=== PATIENT | female | born 1970 | race American Indian/Alaskan Native ===

== ENCOUNTER 2019-07-12 13:50 | Emergency (ER) | payer MEDICAID, OTHER ==
[2019-07-12] MEDS ORDERED: ASPIRIN 81 MG TAB CHEW PO ONE (15:51)
[2019-07-12] MEDS ORDERED: NITROGLYCERIN 0.4 MG TAB SUBL SL ONE ×2 (15:53→16:33)
[2019-07-12] MEDS ORDERED: MORPHINE 4 MG/1 ML INJ IV ONE (15:53)
[2019-07-12] MEDS ORDERED: ONDANSETRON 4 MG/2 ML INJ IV ONE (15:54)
[2019-07-12 16:10] LABS: Hemoglobin 13.4 gm/dl (10.1-14.3); Red Blood Count 4.34 M/mm3 (3.65-5.03)
[2019-07-12 16:11] LABS: Basophils % (Auto) 0.2 % (0.0-1.8); Eosinophils # (Auto) 0.1 K/mm3 (0.0-0.4); Eosinophils % (Auto) 1.5 % (0.0-4.3); Hematocrit 40.1 % (30.3-42.9); Lymphocytes # (Auto) 1.3 K/mm3 (1.2-5.4); Lymphocytes % (Auto) 28.2 % (13.4-35.0); Mean Corpuscular HGB Conc 33 % (30-34); Mean Corpuscular Volume 93 fl (79-97); Monocytes # (Auto) 0.4 K/mm3 (0.0-0.8); Monocytes % (Auto) 8.5 % (0.0-7.3); Platelet Count 216 K/mm3 (140-440); Red Cell Distribution Width 14.1 % (13.2-15.2)
[2019-07-12 16:26] LABS: Alanine Aminotransferase 15 units/L (7-56); Albumin 3.9 g/dL (3.9-5); BUN/Creatinine Ratio 10; Blood Urea Nitrogen 7 mg/dL (7-17); Calcium 9.2 mg/dL (8.4-10.2); Hemolysis Index 11
--- NOTE | 2019-07-12 16:32 | XRay Report ---
CHEST 2 VIEWS INDICATION: Chest Pain left sided. COMPARISON: None. FINDINGS: Support devices: None. Heart: Within normal limits. Lungs/Pleura: No acute air space or interstitial disease. No significant pleural effusion. IMPRESSION: No acute findings. Signer Name: Chi Lala MD Signed: 07/12/2019 4:28 PM Workstation Name: [id number]
[2019-07-12] MEDS ORDERED: ASPIRIN 81 MG TAB CHEW ONE (16:33)
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
[2019-07-12 19:32] VITALS: BP 144/81
== END 2019-07-12 19:20 | disposition home or self-care (01) ==
LOC: ED 13:50
DX: S93.402A Sprain of unspecified ligament of left ankle, initial encounter (principal); S70.02XA Contusion of left hip, initial encounter; S20.219A Contusion of unspecified front wall of thorax, initial encounter; S80.02XA Contusion of left knee, initial encounter; S09.8XXA Other specified injuries of head, initial encounter; Z79.899 Other long term (current) drug therapy; V47.5XXA Car driver injured in collision with fixed or stationary object in traffic accident, initial encounter; Y93.89 Activity, other specified; Y92.410 Unspecified street and highway as the place of occurrence of the external cause; Y99.8 Other external cause status
CPT/HCPCS: 36415; 70450; 71046; 73502; 73562; 73600; 74177; 80053; 84484; 85025; 93005; 93010; 96374; 96375; 99285; J2270; J2405; Q9967

== ENCOUNTER 2020-07-29 13:06 | Emergency (ER) | payer MEDICAID ==
[2020-07-29 13:21] VITALS: BP 150/98
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
[2020-07-29 14:07] LABS: Basophils % (Auto) 0.4 % (0.0-1.8); Eosinophils # (Auto) 0.1 K/mm3 (0.0-0.4); Hematocrit 38.5 % (30.3-42.9); Hemoglobin 12.7 gm/dl (10.1-14.3); Lymphocytes % (Auto) 31.8 % (13.4-35.0); Mean Corpuscular HGB Conc 33 % (30-34); Mean Corpuscular Volume 92 fl (79-97); Monocytes # (Auto) 0.5 K/mm3 (0.0-0.8); Monocytes % (Auto) 7.5 % (0.0-7.3); Platelet Count 246 K/mm3 (140-440); Red Blood Count 4.17 M/mm3 (3.65-5.03); Red Cell Distribution Width 14.3 % (13.2-15.2)
[2020-07-29 14:34] LABS: Alanine Aminotransferase 10 units/L (7-56); Albumin 3.8 g/dL (3.9-5); BUN/Creatinine Ratio 10; Blood Urea Nitrogen 8 mg/dL (7-17); Hemolysis Index 5
--- NOTE | 2020-07-31 10:40 | Electrocardiograph Report ---
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
== END 2020-07-29 18:25 | disposition left against medical advice (07) ==
LOC: ED 13:06
DX: R06.02 Shortness of breath (principal); M79.602 Pain in left arm; I11.0 Hypertensive heart disease with heart failure; I50.9 Heart failure, unspecified; E11.9 Type 2 diabetes mellitus without complications; Z53.21 Procedure and treatment not carried out due to patient leaving prior to being seen by health care provider
CPT/HCPCS: 36415; 71046; 80053; 83880; 84484; 85025; 93005

== ENCOUNTER 2020-08-15 17:25 | Emergency (ER) | payer MEDICAID ==
--- NOTE | 2020-08-15 17:47 | Event Note ---
ED Screening Note Date of service: 08/15/20 Time: 17:46 ED Screening Note: Patient complains of body aches, shortness of breath, and headache x1 week States was seen at urgent care and referred to the ED History of asthma, CHF, hypertension, diabetes This initial assessment/diagnostic orders/clinical plan/treatment(s) is/are subject to change based on patients health status, clinical progression and re- assessment by fellow clinical providers in the ED. Further treatment and workup at subsequent clinical providers discretion. Patient/guardian urged not to elope from the ED as their condition may be serious if not clinically assessed and managed. Initial orders include: Labs Chest x-ray
[2020-08-15 18:15] LABS: Eosinophils # (Auto) 0.3 K/mm3 (0.0-0.4); Eosinophils % (Auto) 3.9 % (0.0-4.3); Hematocrit 38.1 % (30.3-42.9); Lymphocytes # (Auto) 1.4 K/mm3 (1.2-5.4); Lymphocytes % (Auto) 20.6 % (13.4-35.0); Mean Corpuscular HGB Conc 34 % (30-34); Mean Corpuscular Volume 91 fl (79-97); Monocytes # (Auto) 0.5 K/mm3 (0.0-0.8); Monocytes % (Auto) 7.3 % (0.0-7.3); Platelet Count 227 K/mm3 (140-440); Red Blood Count 4.18 M/mm3 (3.65-5.03); Red Cell Distribution Width 14.7 % (13.2-15.2)
[2020-08-15 18:25] LABS: Alanine Aminotransferase 9 units/L (7-56); Albumin 3.9 g/dL (3.9-5); BUN/Creatinine Ratio 9; Blood Urea Nitrogen 7 mg/dL (7-17); Calcium 9.1 mg/dL (8.4-10.2); Hemolysis Index 9
--- NOTE | 2020-08-15 18:52 | XRay Report ---
CHEST 2 VIEWS INDICATION / CLINICAL INFORMATION: shortness of breath. COMPARISON: 07/29/2020. FINDINGS: SUPPORT DEVICES: None. HEART / MEDIASTINUM: Stable. LUNGS / PLEURA: No significant pulmonary or pleural abnormality. No pneumothorax. ADDITIONAL FINDINGS: No significant additional findings. IMPRESSION: 1. No acute cardiopulmonary abnormality. No significant change from 07/29/2020. Signer Name: Ty Benjamin MD Signed: 08/15/2020 6:48 PM Workstation Name: [id number]
[2020-08-15 21:26] VITALS: BP 140/82
--- NOTE | 2020-08-15 21:32 | Emergency Department Report ---
ED General Adult HPI - General Chief complaint: Dyspnea/Respdistress Stated complaint: COVID/FLU SYMPTOMS BREATHING TREATMENT PUI?: Yes Time Seen by Provider: 08/15/20 17:46 Source: patient Mode of arrival: Ambulatory Limitations: No Limitations - History of Present Illness Initial comments: cc: "BODY Aches for 2 weeks, I thought it was my bronchitis/asthma" HPI: This is a 49 yo female with hx of asthma, bronchitis with cough body aches for the past 2 weeks. Generalized malaise. She denies fever. She notes loss of taste or smell. She is awaiting the result of Covid test which was obtained per urgent care. Patient has had mild headaches. Past medical history includes asthma congestive heart failure diabetes hypertension. -: Gradual, week(s) (1 week) Consistency: constant Improves with: none, immobilization Associated Symptoms: cough, headaches, malaise - Related Data Previous Rx's Medication Instructions Recorded Last Taken Type Cyclobenzaprine [Flexeril] 10 mg PO TID PRN #14 tablet 07/12/19 Unknown Rx HYDROcodone/APAP 5-325 [[place] 1 - 2 each PO Q6HR PRN #10 tablet 07/12/19 Unknown Rx 5/325] Allergies Allergy/AdvReac Type Severity Reaction Status Date / Time ciprofloxacin [From Cipro] Allergy Unknown Verified 07/12/19 16:59 ibuprofen Allergy Unknown Verified 07/12/19 16:59 metronidazole [From Flagyl] Allergy Unknown Verified 07/12/19 16:59 prednisone Allergy Unknown Verified 07/12/19 16:59 tramadol Allergy Unknown Verified 07/12/19 16:59 apple AdvReac Unknown Verified 08/15/20 17:47 Penicillins AdvReac Unknown Verified 08/15/20 17:47 shellfish derived AdvReac Unknown Verified 08/15/20 17:47 wheat AdvReac Unknown Verified 08/15/20 17:47 ED Review of Systems ROS: Stated complaint: COVID/FLU SYMPTOMS BREATHING TREATMENT Other details as noted in HPI Comment: All other systems reviewed and negative Constitutional: malaise. denies: fever ENT: denies: throat pain Respiratory: cough. denies: shortness of breath, wheezing Neurological: headache ED Past Medical Hx - Past Medical History Previous Medical History?: Yes Hx Hypertension: Yes Hx Congestive Heart Failure: Yes Hx Diabetes: Yes Hx Asthma: Yes - Social History Smoking Status: Never Smoker Substance Use Type: None - Medications Home Medications: Home Medications Medication Instructions Recorded Confirmed Last Taken Type Cyclobenzaprine [Flexeril] 10 mg PO TID PRN #14 tablet 07/12/19 Unknown Rx HYDROcodone/APAP 5-325 [[place] 1 - 2 each PO Q6HR PRN #10 tablet 07/12/19 Unknown Rx 5/325] ED Physical Exam - General Limitations: No Limitations General appearance: alert, in no apparent distress, other (Well-appearing talkative, 100% on room air oxygen saturation on monitor, semisupine) - Head Head exam: Present: atraumatic, normocephalic - Eye Eye exam: Present: normal appearance - ENT ENT exam: Present: mucous membranes moist - Neck Neck exam: Present: normal inspection, full ROM - Respiratory Respiratory exam: Present: normal lung sounds bilaterally. Absent: respiratory distress, wheezes, rales, rhonchi - Cardiovascular Cardiovascular Exam: Present: regular rate, normal rhythm, normal heart sounds. Absent: systolic murmur, diastolic murmur, rubs, gallop - GI/Abdominal GI/Abdominal exam: Present: soft, normal bowel sounds. Absent: distended, tenderness, guarding - Extremities Exam Extremities exam: Present: normal inspection - Neurological Exam Neurological exam: Present: alert, oriented X3 - Psychiatric Psychiatric exam: Present: normal affect, normal mood - Skin Skin exam: Present: warm, dry, intact, normal color. Absent: rash ED Course Vital Signs 08/15/20 08/15/20 17:48 21:16 Temperature 98.3 F Pulse Rate 93 H 81 Respiratory 15 17 Rate Blood Pressure 148/94 140/82 O2 Sat by Pulse 95 99 Oximetry ED Medical Decision Making - Lab Data Result diagrams: 08/15/20 17:52 08/15/20 17:52 Laboratory Results - last 24 hr 08/15/20 08/15/20 17:52 17:52 WBC 7.0 RBC 4.18 Hgb 13.0 Hct 38.1 MCV 91 MCH 31 MCHC 34 RDW 14.7 Plt Count 227 Lymph % (Auto) 20.6 Ashley % (Auto) 7.3 Eos % (Auto) 3.9 Baso % (Auto) Insurance Plan Specialist Lymph # (Auto) 1.4 Ashley # (Auto) 0.5 Eos # (Auto) 0.3 Baso # (Auto) 0.0 Seg Neutrophils % 67.8 Seg Neutrophils # 4.7 Sodium 138 Potassium 3.7 Chloride 100.3 Carbon Dioxide 27 Anion Gap 14 BUN 7 Creatinine 0.8 Estimated GFR > 60 BUN/Creatinine Ratio 9 Glucose 197 H Calcium 9.1 Total Bilirubin 0.20 AST 14 ALT 9 Alkaline Phosphatase 68 NT-Pro-B Natriuret Pep 50.67 Total Protein 7.2 Albumin 3.9 Albumin/Globulin Ratio 1.2 - Radiology Data Radiology results: report reviewed Chest radiograph no acute process according to radiology report - Medical Decision Making Patient presents with headache body aches cough for 2 weeks. Suspected COVID-19 infection versus influenza. Patient understands to rest hydrate self isolate. Patient appears well. She was given reassurance return precautions CBC chemis try BMP within normal limits. Critical care attestation.: If time is entered above; I have spent that time in minutes in the direct care of this critically ill patient, excluding procedure time. ED Disposition Clinical Impression: Suspected COVID-19 virus infection Disposition: DC-01 TO HOME OR SELFCARE Is pt being admited?: No Does the pt Need Aspirin: No Condition: Stable Instructions: COVID-19 Frequently Asked Questions Referrals: ERIN TRUJILLO MD [Staff Physician] - as needed
[2020-08-15 21:45] LABS: Bacteria,Urine 1+ /HPF (Negative); Bilirubin,Urine NEG (Negative); Blood,Urine NEG (Negative); Color,Urine Yellow (Yellow); Mucus,Urine FEW /HPF; Protein,Urine <15 mg/dL mg/dL (Negative)
== END 2020-08-15 21:43 | disposition home or self-care (01) ==
LOC: ED 17:25
DX: R05 Cough (principal); Z20.822 Contact with and (suspected) exposure to COVID-19; R51.9 Headache, unspecified; R53.81 Other malaise; I11.0 Hypertensive heart disease with heart failure; I50.9 Heart failure, unspecified; E11.9 Type 2 diabetes mellitus without complications; J45.909 Unspecified asthma, uncomplicated; Z79.899 Other long term (current) drug therapy; Z88.8 Allergy status to other drugs, medicaments and biological substances
CPT/HCPCS: 36415; 71046; 80053; 81001; 83880; 85025; 87086

== ENCOUNTER 2020-10-31 19:39 | Emergency (ER) | payer MEDICAID ==
[2020-10-31 19:59] VITALS: BP 144/99
[2020-10-31] MEDS ORDERED: SODIUM CHLORIDE 0.9% 1000 ML 1,000 ML IV ONE (20:35)
[2020-10-31 20:36] LABS: Basophils % (Auto) 0.5 % (0.0-1.8); Eosinophils # (Auto) 0.2 K/mm3 (0.0-0.4); Eosinophils % (Auto) 1.7 % (0.0-4.3); Hematocrit 36.6 % (30.3-42.9); Hemoglobin 12.7 gm/dl (10.1-14.3); Lymphocytes # (Auto) 2.2 K/mm3 (1.2-5.4); Lymphocytes % (Auto) 22.1 % (13.4-35.0); Mean Corpuscular HGB Conc 35 % (30-34); Mean Corpuscular Volume 91 fl (79-97); Monocytes # (Auto) 0.6 K/mm3 (0.0-0.8); Monocytes % (Auto) 5.8 % (0.0-7.3); Platelet Count 233 K/mm3 (140-440); Red Cell Distribution Width 14.3 % (13.2-15.2)
[2020-10-31] MEDS ORDERED: ONDANSETRON 4 MG/2 ML INJ IV ONE (20:37)
[2020-10-31] MEDS ORDERED: MORPHINE 4 MG/1 ML INJ IV ONE (20:37)
[2020-10-31 20:54] LABS: BUN/Creatinine Ratio 8; Blood Urea Nitrogen 6 mg/dL (7-17); Calcium 9.2 mg/dL (8.4-10.2); Hemolysis Index 2
--- NOTE | 2020-10-31 21:06 | Emergency Department Report ---
ED Abdominal Pain HPI - General Chief Complaint: Abdominal Pain Stated Complaint: ABD PAIN/BLOOD IN URINE/ABD FLUID Time Seen by Provider: 10/31/20 20:21 Source: patient Mode of arrival: Ambulatory Limitations: No Limitations - History of Present Illness Initial Comments: 50 year old female presents to ED with complaints of abdominal pain. Patient states her symptoms started 2 days ago. She states pain started left side of her abd and lower abd but now its all over her abdomen. She reports nausea but no vomiting. She denies any bowel changes. She reports dysuria, urinary frequency and vaginal discomfort when urinating. She denies any vaginal discharge or rash. She states her last MC was 08/2019. She denies . She is still sexually active with same partner (her ). She states she went to an urgent care for her symptoms today and she was told by the doctor she had UTI but he recommended that she come to ED because she had protein in he urine and blood in urine. Patient states she has not seen any blood in her urine. She states an antibiotic was called in to pharmacy for her but she has not picked it up as yet. She denies any fever or chills. MD Complaint: abdominal pain -: days(s) (2) - Related Data Previous Rx's Medication Instructions Recorded Last Taken Type Cyclobenzaprine [Flexeril] 10 mg PO TID PRN #14 tablet 07/12/19 Unknown Rx HYDROcodone/APAP 5-325 [[place] 1 - 2 each PO Q6HR PRN #10 tablet 07/12/19 Unknown Rx 5/325] Acetaminophen/Codeine [Tylenol 1 tab PO Q6H PRN #12 tab 10/31/20 Unknown Rx /Codeine # 3 tab] Ondansetron [Zofran Odt] 4 mg PO Q8HR PRN #12 tab.rapdis 10/31/20 Unknown Rx Phenazopyridine [Pyridium] 200 mg PO TID PRN #9 tab 10/31/20 Unknown Rx Allergies Allergy/AdvReac Type Severity Reaction Status Date / Time ciprofloxacin [From Cipro] Allergy Unknown Verified 10/31/20 22:18 ibuprofen Allergy Unknown Verified 10/31/20 22:18 metronidazole [From Flagyl] Allergy Unknown Verified 10/31/20 22:18 prednisone Allergy Unknown Verified 10/31/20 22:18 tramadol Allergy Unknown Verified 10/31/20 22:18 apple AdvReac Unknown Verified 10/31/20 22:18 Penicillins AdvReac Unknown Verified 10/31/20 22:18 shellfish derived AdvReac Unknown Verified 10/31/20 22:18 wheat AdvReac Unknown Verified 10/31/20 22:18 ED Review of Systems ROS: Stated complaint: ABD PAIN/BLOOD IN URINE/ABD FLUID Other details as noted in HPI Comment: All other systems reviewed and negative Constitutional: denies: chills, fever Eyes: denies: eye pain, eye discharge, vision change ENT: denies: ear pain, throat pain, dental pain, hearing loss, epistaxis, congestion Respiratory: denies: cough, shortness of breath, SOB with exertion, SOB at rest, wheezing Cardiovascular: denies: chest pain, palpitations Gastrointestinal: abdominal pain, nausea. denies: vomiting, diarrhea, constipation, hematemesis, melena, hematochezia Genitourinary: dysuria, frequency, abnormal menses. denies: hematuria, discharge, dyspareunia Musculoskeletal: denies: back pain, joint swelling, arthralgia, myalgia Skin: denies: rash, lesions, change in color, change in hair/nails, pruritus Neurological: denies: headache, weakness, numbness, paresthesias, confusion, abnormal gait, vertigo Psychiatric: denies: anxiety, depression, auditory hallucinations, visual hallucinations, homicidal thoughts, suicidal thoughts Hematological/Lymphatic: denies: easy bleeding, easy bruising, swollen glands ED Past Medical Hx - Past Medical History Previous Medical History?: Yes Hx Hypertension: Yes Hx Congestive Heart Failure: Yes Hx Diabetes: Yes Hx Asthma: Yes - Surgical History Past Surgical History?: Yes Additional Surgical History: - Social History Smoking Status: Never Smoker Substance Use Type: None - Medications Home Medications: Home Medications Medication Instructions Recorded Confirmed Last Taken Type Cyclobenzaprine [Flexeril] 10 mg PO TID PRN #14 tablet 07/12/19 Unknown Rx HYDROcodone/APAP 5-325 [[place] 1 - 2 each PO Q6HR PRN #10 tablet 07/12/19 Unknown Rx 5/325] Acetaminophen/Codeine [Tylenol 1 tab PO Q6H PRN #12 tab 10/31/20 Unknown Rx /Codeine # 3 tab] Ondansetron [Zofran Odt] 4 mg PO Q8HR PRN #12 tab.rapdis 10/31/20 Unknown Rx Phenazopyridine [Pyridium] 200 mg PO TID PRN #9 tab 10/31/20 Unknown Rx ED Physical Exam - General Limitations: No Limitations General appearance: alert, in no apparent distress - Head Head exam: Present: atraumatic, normocephalic, normal inspection - Eye Eye exam: Present: normal appearance, PERRL, EOMI Pupils: Present: normal accommodation - Neck Neck exam: Present: normal inspection, full ROM. Absent: meningismus - Respiratory Respiratory exam: Present: normal lung sounds bilaterally. Absent: respiratory distress, wheezes, rales, rhonchi - Cardiovascular Cardiovascular Exam: Present: regular rate, normal rhythm, normal heart sounds - GI/Abdominal GI/Abdominal exam: Present: soft, tenderness (TTP diffusely lower abdomen, and LUQ abdomen with mild guarding but rebound. ). Absent: distended - Back Exam Back exam: Present: normal inspection, full ROM. Absent: CVA tenderness (R), CVA tenderness (L) - Neurological Exam Neurological exam: Present: alert, oriented X3, CN II-XII intact, normal gait - Psychiatric Psychiatric exam: Present: normal affect, normal mood - Skin Skin exam: Present: intact ED Course Vital Signs 10/31/20 10/31/20 10/31/20 19:57 21:01 21:31 Temperature 98.3 F Pulse Rate 98 H Respiratory 17 18 18 Rate Blood Pressure 144/99 O2 Sat by Pulse 97 Oximetry 10/31/20 23:05 Temperature Pulse Rate 83 Respiratory 18 Rate Blood Pressure O2 Sat by Pulse 96 Oximetry ED Medical Decision Making - Lab Data Result diagrams: 10/31/20 20:07 10/31/20 20:07 - Radiology Data Radiology results: report reviewed Patient: JAY ARCEO MR#: [id number] : 1970 Acct:[id number] Age/Sex: 50 / F ADM Date: 10/31/20 Loc: ED Attending Dr: Ordering Physician: JEANINE BALL Date of Service: 10/31/20 Procedure(s): CT abdomen pelvis w con Accession Number(s): [id number] cc: JEANINE BALL CT ABDOMEN AND PELVIS WITH CONTRAST INDICATION / CLINICAL INFORMATION: left abd pain/lower abd pain. TECHNIQUE: Axial CT images were obtained through the abdomen and pelvis after Omnipaque 300, [address] scans at this location are performed using CT dose reduction for ALARA by means of automated exposure control. COMPARISON: None available. FINDINGS: LOWER CHEST: No significant abnormality. LIVER: Fatty infiltration. GALLBLADDER: Surgically absent. BILE DUCTS: No significant abnormality. PANCREAS: No significant abnormality. SPLEEN: No significant abnormality. ADRENALS: No significant abnormality. RIGHT KIDNEY / URETER: No significant abnormality. LEFT KIDNEY / URETER: No significant abnormality. STOMACH / SMALL BOWEL: No significant abnormality. COLON: No significant abnormality. APPENDIX: No significant abnormality. PERITONEUM: No free fluid. No free air. No fluid collection. LYMPH NODES: No significant adenopathy. VASCULAR STRUCTURES: No significant abnormality. URINARY BLADDER: Diffuse symmetric thickening with mild wall enhancement. REPRODUCTIVE ORGANS: Fibroid disease. ADDITIONAL FINDINGS: None. SKELETAL SYSTEM: No significant abnormality. IMPRESSION: 1. Suspected cystitis. 2. Mild fatty infiltration of the liver. Signer Name: Chi Lala MD Signed: 10/31/2020 10:06 PM Workstation Name: [id number] Transcribed By: ES Dictated By: Chi Lala MD Electronically Authenticated By: Chi Lala MD Signed Date/Time: 10/31/202205 DD/ 01 TD/TT: - Medical Decision Making CT abdomen pelvis with IV contrast reviewed and shows cystitis and mild fatty liver but otherwise unremarkable. Labs reviewed--CBC unremarkable. CMP shows elevated glucose of 164 ( pt is known diabetic) and a mildly decreased magnesium of 1.6 but otherwise CMP unremarkable. UA is positive for UTI. Urine culture is pending. Patient resting comfortably sitting on the bed talking on her phone. She does not appear to be in any acute distress. She is not toxic or ill-appearing. She is neurologically intact. Discussed imaging results and lab results with patient. She will be given a dose of antibiotics here for her cystitis/UTI. She states that she already has a prescription for antibiotics called into her pharmacy from the urgent care. She does not recall the name of the antibiotics but I do recommend that she get that filled in the morning and start taking it. Patient instructed to drink lots of water. She was also instructed to follow-up closely with her primary care doctor. Patient expressed understanding of instructions and agree with plan. Patient stable at time of discharge. Critical care attestation.: If time is entered above; I have spent that time in minutes in the direct care of this critically ill patient, excluding procedure time. ED Disposition Clinical Impression: UTI (urinary tract infection) Disposition: TO HOME OR SELFCARE Is pt being admited?: No Does the pt Need Aspirin: No Condition: Stable Instructions: Urinary Tract Infection, Adult, Abdominal Pain (ED) Additional Instructions: I recommend taking the pyridium and tylenol 3 as prescribed. I recommend that you get the antibiotic that was sent to your pharmacy and start taking it tomorrow. Drink lots of water. Follow-up with your primary care doctor in the next 3 to 5 days. Return to the ER if your symptoms changes or worsens in any way Prescriptions: Phenazopyridine [Pyridium] 200 mg PO TID PRN #9 tab PRN Reason: dysuria Acetaminophen/Codeine [Tylenol /Codeine # 3 tab] 1 tab PO Q6H PRN #12 tab PRN Reason: Pain , Severe (7-10) Ondansetron [Zofran Odt] 4 mg PO Q8HR PRN #12 tab.rapdis PRN Reason: nausea' Referrals: ERIN TRUJILLO MD [Staff Physician] - 3-5 Days Time of Disposition: 22:16
[2020-10-31 21:14] LABS: Alanine Aminotransferase 9 units/L (7-56); Albumin 4.1 g/dL (3.9-5)
[2020-10-31 21:15] LABS: Bilirubin,Direct < 0.2 mg/dL (0-0.2)
[2020-10-31 21:57] LABS: Bacteria,Urine 1+ /HPF (Negative); Bilirubin,Urine NEG (Negative); Blood,Urine LG (Negative); Color,Urine Yellow (Yellow); Mucus,Urine FEW /HPF; Urobilinogen,Urine < 2.0 mg/dL (<2.0)
[2020-10-31 21:58] LABS: WBC,Urine > 182.0 /HPF (0.0-6.0)
[2020-10-31] MEDS ORDERED: cefTRIAXone/NS 1 GM/50 ML 1 GM/50 ML BAG IV ONE (22:00)
--- NOTE | 2020-10-31 22:11 | Cat Scan Report ---
CT ABDOMEN AND PELVIS WITH CONTRAST INDICATION / CLINICAL INFORMATION: left abd pain/lower abd pain. TECHNIQUE: Axial CT images were obtained through the abdomen and pelvis after Omnipaque 300, 100 cc I V contrast. All CT scans at this location are performed using CT dose reduction for ALARA by means o f automated exposure control. COMPARISON: None available. FINDINGS: LOWER CHEST: No significant abnormality. LIVER: Fatty infiltration. GALLBLADDER: Surgically absent. BILE DUCTS: No significant abnormality. PANCREAS: No significant abnormality. SPLEEN: No significant abnormality. ADRENALS: No significant abnormality. RIGHT KIDNEY / URETER: No significant abnormality. LEFT KIDNEY / URETER: No significant abnormality. STOMACH / SMALL BOWEL: No significant abnormality. COLON: No significant abnormality. APPENDIX: No significant abnormality. PERITONEUM: No free fluid. No free air. No fluid collection. LYMPH NODES: No significant adenopathy. VASCULAR STRUCTURES: No significant abnormality. URINARY BLADDER: Diffuse symmetric thickening with mild wall enhancement. REPRODUCTIVE ORGANS: Fibroid disease. ADDITIONAL FINDINGS: None. SKELETAL SYSTEM: No significant abnormality. IMPRESSION: 1. Suspected cystitis. 2. Mild fatty infiltration of the liver. Signer Name: Chi Lala MD Signed: 10/31/2020 10:06 PM Workstation Name: [id number]
== END 2020-10-31 23:05 | disposition home or self-care (01) ==
LOC: ED 19:39
DX: N39.0 Urinary tract infection, site not specified (principal); R10.32 Left lower quadrant pain; R10.12 Left upper quadrant pain; I10 Essential (primary) hypertension; E11.9 Type 2 diabetes mellitus without complications; J45.909 Unspecified asthma, uncomplicated; Z98.890 Other specified postprocedural states; Z88.0 Allergy status to penicillin; Z88.5 Allergy status to narcotic agent; Z88.1 Allergy status to other antibiotic agents; Z88.6 Allergy status to analgesic agent; Z91.018 Allergy to other foods; Z91.013 Allergy to seafood; Z79.899 Other long term (current) drug therapy
CPT/HCPCS: 36415; 74177; 80048; 80076; 81001; 83690; 83735; 84703; 85025; 87086; 96361; 96365; 96375; 99284; J0696; J2270; J2405; J7030; Q9967

== ENCOUNTER 2021-01-29 11:05 | Outpatient (CLI) | payer MEDICAID ==
--- NOTE | 2021-01-29 12:18 | XRay Report ---
CHEST 2 VIEWS INDICATION / CLINICAL INFORMATION: SOB R06.02/ COUGH R05. COMPARISON: 2 views of the chest from 12/31/2020. FINDINGS: SUPPORT DEVICES: None. HEART / MEDIASTINUM: No significant abnormality. LUNGS / PLEURA: Interstitial opacities are noted along the mid/lower lungs with improved aeration sin ce the last study. No other significant pulmonary abnormality. No significant pleural effusion. No pn eumothorax. ADDITIONAL FINDINGS: No significant additional findings. IMPRESSION: Improved aeration of the lungs with suspected residual bilateral pneumonia. Signer Name: Terry Ac MD Signed: 01/29/2021 12:14 PM Workstation Name: [id number]
== END 2021-01-29 11:06 | disposition home or self-care (01) ==
LOC: XRAY 11:05
DX: R06.02 Shortness of breath (principal); R05.9 Cough, unspecified
CPT/HCPCS: 71046

== ENCOUNTER 2021-09-07 22:06 | Emergency (ER) | payer MEDICAID ==
[2021-09-07 22:57] VITALS: BP 169/79
== END 2021-09-08 05:30 | disposition left against medical advice (07) ==
LOC: ED 22:06
DX: R51.9 Headache, unspecified (principal); M79.603 Pain in arm, unspecified; Z53.21 Procedure and treatment not carried out due to patient leaving prior to being seen by health care provider